=== PATIENT | male | born 1975 | race Caucasian/White ===

== ENCOUNTER 2024-01-03 13:41 | Inpatient (IN) | payer MEDICAID, SELFPAY ==
[2024-01-03 13:58] VITALS: BMI 22.9
[2024-01-03 14:00] VITALS: BP 133/84; PULSE 94; RESP 16; TEMP 36.9; O2SAT 94
[2024-01-03] MEDS: nicotine 21 mg Patch 1 PATCH TRANSDERMA (14:35)
[2024-01-03] MEDS: hyDROXYzine 25 mg Capsule 50 MG PO (14:35)
[2024-01-03] MEDS: ondansetron 4 MG Tablet PO (14:35)
[2024-01-03] MEDS: cetylpyridinium Lozenge 1 EACH MUCOUS MEM (14:35)
[2024-01-03] MEDS: LORazepam 2 mg Tablet PO (17:56)
[2024-01-03] MEDS: trazodone 50 mg Tablet PO (20:36)
[2024-01-03] MEDS: OLANZapine 5 mg ODT PO (20:36)
[2024-01-03 21:18] VITALS: BP 156/80; PULSE 107; RESP 20; O2SAT 97
--- NOTE | 2024-01-03 23:13 | PC.NURSE ---
PT IN BED RESTING. CAME UP TO NURSES STATION ASSESSMENT COMPLETED. PT IS EVASIVE AND STATES HE ONLY WANTS MEDICATIONS NOT ANSWER 20 QUESTIONS. DENIES PAIN. DENIES SI/HI AND AVH AT THIS TIME. WILL NOT RATE ANXIETY OR DEPRESSION, ONLY STATES HE HAS ANXIETY. PT WAS GIVEN TRAZODONE 50 MG ORDERED FOR INSOMNIA AND ZYDIS 5 MG FOR INCREASED ANXIETY. REPORTS HE WILL NOT TAKE VISTARIL. ALL QUESTIONS ANSWERED AND SUPPORT VOICED.
[2024-01-04 06:00] VITALS: BP 98/63; PULSE 80; RESP 16; O2SAT 91
--- NOTE | 2024-01-04 06:45 | PC.NURSE ---
PT RECEIVED PRN MEDICATIONS THIS SHIFT. PT WAS GIVEN TRAZODONE FOR INSOMNIA AND ZYDIS FOR INCREASED AGITATION. PT HAS SLEPT APPROXIMATELY 9-10 HOURS THIS SHIFT AND HAS NO OTHER COMPLAINTS OF ANXIETY. MEDICATIONS DEEMED EFFECTIVE AT THIS TIME. PT CONTINUES TO REST WITH EYES CLOSED WITH NO DISTRESS NOTED.
[2024-01-04] MEDS: multivitamin therapeutic Tablet 1 TAB PO (08:57)
[2024-01-04] MEDS: thiamine 100 mg Tablet PO (08:57)
[2024-01-04] MEDS: folic acid 1 mg Tablet PO (08:57)
--- NOTE | 2024-01-04 11:42 | W.PM.NPUH&PS ---
Providers/Chief Complaint Admitting Physician: Chris Garzon MD Chief Complaint: ETOH HPI NPU History of Present Illness Christiano Garzon is a 48 year old male who presented to [facility] emergency department with reports of being on a 4-day binge of approximately 7 pints after 2 years of sobriety. He endorsed depression and suicidal ideation at that facility. An affidavit was signed and he was transferred to [facility] and admitted to the neuropsychiatric unit for definitive treatment of those issues. Review of the outpatient records identify that he had appropriate labs and is BAL was 247.95 and presumptive positive for benzodiazepines but was likely iatrogenic through administration in the emergency department. He did during that assessment at [facility] endorse a plan to jump off a bridge and reporting that he just feels like he does not want to wake up. He presents reporting past psychiatric care but was not specific. He endorsed having a history of alcohol use and methamphetamine use. He reported no identifiable family history for mental health or addiction. He reported that he does smoke and vape and drink alcohol but denies current other drug use but agrees that there has been a past history. We discussed restarting his medications. Discussing the risks, benefits and alternatives and he understood and agreed to consider restarting them as is documented in this note. Additionally given his current withdrawal status we discussed initiating a CIWA protocol to objectively treat his alcohol withdrawal. He was otherwise a limited historian endorsing feeling horrible and trying to rest to get through these symptoms. We discussed him working with the social work team in an attempt to identify a trajectory for aftercare with our recommendation for sober living treatment at discharge. Meds NPU Home Medications Medication Instructions Recorded Confirmed Last Taken Type bupropion HCl 150 mg 24 hr tablet, 150 mg PO DAILY 01/03/24 01/03/24 Unknown History extended release (Wellbutrin XL) clonidine HCl 0.1 mg tablet 0.1 mg PO BID PRN Anxiety 01/03/24 01/03/24 Unknown History topiramate 50 mg tablet (Topamax) 50 mg PO DAILY 01/03/24 01/03/24 Unknown History Allergies Allergy/AdvReac Type Severity Reaction Status Date / Time milk Allergy ADR-Nausea Verified 01/03/24 17:57 Mental Status Exam MSE Comments: This is a well-nourished well-developed white male in hospital scrubs with limited grooming and contact. No abnormal movements except for psychomotor retardation. Somewhat cooperative with exam in mild to moderate distress. Speech was limited and decreased rate and volume. Mood described as depressed crappy, affect congruent and subdued. Thought process was more organized. Thought content: Patient reported suicidal but denied homicidal ideation, there were no delusions reported or noted, he denied any auditory or visual hallucinations. Attention and concentration appear limited and memory appeared unreliable but none were formally tested. He was alert and oriented x 3. Insight and judgment were limited impulse control poor. Vitals/I&O/Wt Last Vital Signs Temp 98.4 F 01/03/24 14:00 Pulse 80 01/04/24 06:00 Resp 16 01/04/24 06:00 BP 98/63 01/04/24 06:00 Pulse Ox 91 01/04/24 06:00 O2 Del Method Room Air 01/04/24 06:00 Weight last 48 hrs Weight 81.193 kg A&P Assessment and plan (1) Alcohol use disorder, severe, dependence: (2) Alcohol withdrawal: (3) Suicidal ideation: (4) Depression: Plan This is a 48-year-old white male who has a history of mental health issues, substance abuse both past and current, with current alcohol withdrawal, anxiety, and suicidal ideation. He has a history of self-harm and presents reporting an openness to treatment. 1. Continue current medication. Consider changes as indicated. 2. Continue every 15 minute checks for safety. 3. Encourage individual, group and milieu therapy. 4. Encourage sober living treatment after discharge at the highest level of care to which he is willing to commit. 5. Initiate CIWA protocol. Involuntary Hold Information 96 Hour Hold: 96 Hour Involuntary Admission: No Attestations NPU Medical Necessity Statement*: Inpatient hospitalization is medically necessary and the clinically appropriate intervention at this time. We will monitor/initiate medications and make changes as indicated. Patient will be in the hospital for over 2 midnights. Likely length of stay 4 to 6 days. Coding Level of Care Code Acute Code for [facility] Fwd Diagnoses Alcohol use disorder, severe, dependence F10.20 Alcohol withdrawal F10.939 Suicidal ideation R45.851 Depression F32.A
[2024-01-04] MEDS: cetylpyridinium Lozenge 1 EACH MUCOUS MEM (12:24)
[2024-01-04] MEDS: LORazepam 2 mg Tablet PO (13:51)
[2024-01-04 14:00] VITALS: BP 126/89; PULSE 98; RESP 17; TEMP 36.4; O2SAT 96
--- NOTE | 2024-01-04 15:01 | PC.OT ---
OT evaluation attempted with pt declining to be seen; will attempt at later time.
[2024-01-04 20:43] VITALS: BP 118/76; PULSE 80; RESP 18; TEMP 36.7; O2SAT 97
[2024-01-04] MEDS: OLANZapine 5 mg ODT PO (20:52)
[2024-01-04] MEDS: trazodone 50 mg Tablet PO (20:52)
--- NOTE | 2024-01-05 05:00 | PC.NURSE ---
PT RECEIVED PRN MEDICATIONS THIS SHIFT FOR SLEEP AND INCREASED ANXIETY. PT WAS GIVEN TRAZODONE 50 MG AND ZYDIS 5 MG EARLIER IN THE SHIFT. MEDICATIONS DEEMED EFFECTIVE. PT HAS HAD NO OTHER COMPLAINTS OF ANXIETY AND HAS SLEPT APPROXIMATELY 8-9 HOURS THIS SHIFT. SUPPORT VOICED.
[2024-01-05 06:00] VITALS: BP 101/62; PULSE 69; RESP 16; O2SAT 96
[2024-01-05] MEDS: folic acid 1 mg Tablet PO (07:40)
[2024-01-05] MEDS: multivitamin therapeutic Tablet 1 TAB PO (07:40)
[2024-01-05] MEDS: LORazepam 2 mg Tablet PO (07:40)
[2024-01-05] MEDS: docusate sodium 100 mg Capsule PO (07:40)
[2024-01-05] MEDS: thiamine 100 mg Tablet PO (07:41)
[2024-01-05 14:00] VITALS: BP 118/74; PULSE 89; RESP 17; TEMP 36.7; O2SAT 96
[2024-01-05] MEDS: acetaminophen 325 mg Tablet 650 MG PO (14:11)
[2024-01-05] MEDS: ondansetron 4 MG Tablet PO (14:12)
[2024-01-05] MEDS: nicotine 21 mg Patch 1 PATCH TRANSDERMA (17:24)
[2024-01-05] MEDS: buPROPion SR (12 HR) 150 mg Tablet PO (17:42)
[2024-01-05 17:44] VITALS: BP 115/83
[2024-01-05] MEDS: cloNIDine 0.1 mg Tablet 0.100000000000000006 MG PO (17:44)
--- NOTE | 2024-01-05 17:51 | W.PM.NPUPNS ---
Subjective NPU Subjective: Patient presented today reporting that he was doing okay. He continued to report needing a mood stabilizer, and anxiety medication, and increasing other medications. We did agree to increase his Wellbutrin XL after discussion of the risks, benefits and alternatives he understood and agreed to proceed as is documented in this note. We discussed the importance of taking things a day at a time and being focused on his withdrawal and sobriety as well. He denied any side effects of the medications. Mental Status Exam MSE Comments: This is a well-nourished well-developed white male in hospital scrubs with limited grooming and contact. No abnormal movements except for psychomotor retardation. Somewhat cooperative with exam in mild to moderate distress. Speech was limited and decreased rate and volume. Mood described as still depressed, affect congruent and subdued. Thought process was more organized. Thought content: Patient reported suicidal but denied homicidal ideation, there were no delusions reported or noted, he denied any auditory or visual hallucinations. Attention and concentration appear limited and memory appeared unreliable but none were formally tested. He was alert and oriented x 3. Insight and judgment were limited impulse control poor. Vitals/I&O/Wt Last Vital Signs Temp 98.0 F 01/05/24 14:00 Pulse 89 01/05/24 14:00 Resp 17 01/05/24 14:00 BP 115/83 01/05/24 17:44 Pulse Ox 96 01/05/24 14:00 O2 Del Method Room Air 01/05/24 06:00 A&P Assessment and plan (1) Alcohol use disorder, severe, dependence: (2) Alcohol withdrawal: (3) Suicidal ideation: (4) Depression: Plan This is a 48-year-old white male who has a history of mental health issues, substance abuse both past and current, with current alcohol withdrawal, anxiety, and suicidal ideation. He has a history of self-harm and presents reporting an openness to treatment. 1. Continue current medication. Increase Wellbutrin XL to 300 mg p.o. daily. 2. Continue every 15 minute checks for safety. 3. Encourage individual, group and milieu therapy. 4. Encourage sober living treatment after discharge at the highest level of care to which he is willing to commit. 5. Initiate [facility] protocol. Involuntary Hold Information 96 Hour Hold: 96 Hour Involuntary Admission: No Attestations NPU Medical Necessity Statement*: Inpatient hospitalization is medically necessary and the clinically appropriate intervention at this time. We will monitor/initiate medications and make changes as indicated. Likely length of stay 4 to 6 days. Coding Level of Care Code Acute Code for [facility] Fwd Diagnoses Alcohol use disorder, severe, dependence F10.20 Alcohol withdrawal F10.939 Suicidal ideation R45.851 Depression F32.A
[2024-01-05] MEDS: ibuprofen 600 mg Tablet PO (20:09)
[2024-01-05] MEDS: cetylpyridinium Lozenge 1 EACH MUCOUS MEM (20:10)
[2024-01-05] MEDS: OLANZapine 5 mg ODT PO (20:11)
[2024-01-05 20:12] VITALS: BP 148/96; PULSE 98; RESP 16; TEMP 36.7; O2SAT 98
--- NOTE | 2024-01-05 22:17 | PC.NURSE ---
PT UP MORE AND CONVERSING WITH [facility]. PT DENIES SI/HI AND AVH AT THIS TIME. REPORTS BACK PAIN, IBUPROFEN WAS GIVEN. RATES ANXIETY 2/10 AND DEPRESSION /. PT WAS GIVEN ZYDIS 5 MG REQUESTED FOR INCREASED ANXIETY. PT STATES HE DOES NOT DO GOOD WITH PEOPLE AND HAS BEEN MORE DEPRESSED LATELY AND WOULD LIKE TO GET HIS MEDICATIONS STRAIGHTEND OUT. ALL QUESTIONS ANSWERED AND SUPPORT VOICED.
[2024-01-06 06:00] VITALS: BP 106/66; PULSE 76; RESP 16; O2SAT 98
--- NOTE | 2024-01-06 06:17 | PC.NURSE ---
PT RECEIVED ZYDIS 5 MG EARLIER IN THE SHIFT FOR REPORTED INCREASED ANXIETY. MEDICATION DEEMED EFFECTIVE PT HAD NO OTHER COMPLAINTS OF ANXIETY THROUGHOUT THE SHIFT. PT SLEPT APPROXIMATELY 9-10 HOURS THIS SHIFT.
[2024-01-06] MEDS: cetylpyridinium Lozenge 1 EACH MUCOUS MEM ×3 (06:50→20:04)
[2024-01-06] MEDS: thiamine 100 mg Tablet PO (08:50)
[2024-01-06] MEDS: buPROPion XL (24 HR) 300 mg Tablet PO (08:50)
[2024-01-06] MEDS: topiramate 25 mg Tablet 50 MG PO (08:51)
[2024-01-06] MEDS: folic acid 1 mg Tablet PO (08:51)
[2024-01-06] MEDS: multivitamin therapeutic Tablet 1 TAB PO (08:51)
--- NOTE | 2024-01-06 11:12 | W.PM.NPUPNS ---
Subjective NPU Subjective: Patient presented today reporting that he is starting to feel better. He continues to endorse having anxiety and feeling like the clonidine never has worked. We discussed the risks, benefits and alternatives of starting propranolol 20 mg p.o. twice daily and he understood and agreed to proceed as is documented in this note. He continues to hope to have discharge sooner rather than later wants to make sure that he has his medications and a acceptable place. Mental Status Exam MSE Comments: This is a well-nourished well-developed white male in hospital scrubs with limited grooming and contact. No abnormal movements except for psychomotor retardation. Somewhat cooperative with exam in mild to moderate distress. Speech was limited and decreased rate and volume. Mood described as still depressed, affect congruent and subdued. Thought process was more organized. Thought content: Patient reported suicidal but denied homicidal ideation, there were no delusions reported or noted, he denied any auditory or visual hallucinations. Attention and concentration appear limited and memory appeared unreliable but none were formally tested. He was alert and oriented x 3. Insight and judgment were limited impulse control poor. Vitals/I&O/Wt Last Vital Signs Temp 98.1 F 01/05/24 20:12 Pulse 76 01/06/24 06:00 Resp 16 01/06/24 06:00 BP 106/66 01/06/24 06:00 Pulse Ox 98 01/06/24 06:00 O2 Del Method Room Air 01/06/24 06:00 Weight last 48 hrs Weight 81.306 kg A&P Assessment and plan (1) Alcohol use disorder, severe, dependence: (2) Alcohol withdrawal: (3) Suicidal ideation: (4) Depression: Plan This is a 48-year-old white male who has a history of mental health issues, substance abuse both past and current, with current alcohol withdrawal, anxiety, and suicidal ideation. He has a history of self-harm and presents reporting an openness to treatment. 1. Continue current medication. Increase Wellbutrin XL to 300 mg p.o. daily. DC clonidine. Start Propanolol 20 mg po bid. 2. Continue every 15 minute checks for safety. 3. Encourage individual, group and milieu therapy. 4. Encourage sober living treatment after discharge at the highest level of care to which he is willing to commit. 5. Initiate CIWA protocol. Involuntary Hold Information 96 Hour Hold: 96 Hour Involuntary Admission: No Attestations NPU Medical Necessity Statement*: Inpatient hospitalization is medically necessary and the clinically appropriate intervention at this time. We will monitor/initiate medications and make changes as indicated. Likely length of stay 2-4 days. Coding Level of Care Code Acute Code for [facility] Fwd Diagnoses Alcohol use disorder, severe, dependence F10.20 Alcohol withdrawal F10.939 Suicidal ideation R45.851 Depression F32.A
[2024-01-06] MEDS: acetaminophen 325 mg Tablet 650 MG PO (11:29)
[2024-01-06] MEDS: hyDROXYzine 25 mg Capsule 50 MG PO (11:31)
[2024-01-06 14:00] VITALS: BP 128/82; PULSE 87; RESP 14; TEMP 36.6; O2SAT 99
[2024-01-06] MEDS: ondansetron 4 MG Tablet PO (14:09)
[2024-01-06] MEDS: propranolol 20 mg Tablet PO ×2 (14:21→17:55)
[2024-01-06 14:22] VITALS: BP 128/82
[2024-01-06] MEDS: nicotine 4 mg lozenge MUCOUS MEM ×2 (15:03→20:04)
[2024-01-06] MEDS: trazodone 50 mg Tablet PO (20:04)
[2024-01-06 20:26] VITALS: BP 123/80; PULSE 89; RESP 18; TEMP 36.8; O2SAT 96
[2024-01-07] MEDS: trazodone 50 mg Tablet PO ×2 (01:27→19:48)
[2024-01-07 06:00] VITALS: BP 102/67; PULSE 77; RESP 18; O2SAT 94
--- NOTE | 2024-01-07 07:58 | PC.NURSE ---
During assessment, patient denied SI, HI, depression, anxiety, and AVH. Patient appears rested and calm. Denied any needs at this time.
[2024-01-07] MEDS: buPROPion XL (24 HR) 300 mg Tablet PO (09:06)
[2024-01-07] MEDS: multivitamin therapeutic Tablet 1 TAB PO (09:07)
[2024-01-07] MEDS: folic acid 1 mg Tablet PO (09:07)
[2024-01-07] MEDS: topiramate 25 mg Tablet 50 MG PO (09:07)
[2024-01-07] MEDS: thiamine 100 mg Tablet PO (09:07)
[2024-01-07] MEDS: propranolol 20 mg Tablet PO ×2 (09:07→19:49)
[2024-01-07 13:45] VITALS: BP 151/102; PULSE 90; RESP 16; TEMP 36.8; O2SAT 98
[2024-01-07] MEDS: nicotine 4 mg lozenge MUCOUS MEM ×3 (16:04→21:04)
[2024-01-07] MEDS: acetaminophen 325 mg Tablet 650 MG PO ×2 (16:04→19:52)
[2024-01-07] MEDS: cetylpyridinium Lozenge 1 EACH MUCOUS MEM (17:52)
--- NOTE | 2024-01-07 17:53 | PC.NURSE ---
PRN CEPACOL LOZENGE, 1 GIVEN PO PER PT C/O SORE THROAT/COUGH
--- NOTE | 2024-01-07 18:35 | W.PM.NPUPNS ---
Subjective NPU Subjective: Patient presented today reporting that he is continuing to feel better with the medication changes. He reports that he was able to talk to the social work team and that they did find him an opportunity at [facility]. The plan is for him to be there by noon tomorrow. He reports that he feels this will give him an opportunity for definite improvement and he is thankful for the treatment that he has gotten here. Otherwise he endorsed that there were no side effects to medication and he is looking forward to discharge tomorrow. Mental Status Exam MSE Comments: This is a well-nourished well-developed white male in hospital scrubs with limited grooming and contact. No abnormal movements except for psychomotor retardation. Somewhat cooperative with exam in mild to moderate distress. Speech was increased spontaneity and more normal rate and volume. Mood described as feeling better affect congruent and less subdued. Thought process was more organized. Thought content: Patient denied suicidal or homicidal ideation, there were no delusions reported or noted, he denied any auditory or visual hallucinations. Attention and concentration appear limited and memory appeared unreliable but none were formally tested. He was alert and oriented x 3. Insight and judgment were limited, but improving impulse control poor. Vitals/I&O/Wt Last Vital Signs Temp 98.3 F 01/07/24 13:45 Pulse 90 01/07/24 13:45 Resp 16 01/07/24 13:45 BP 151/102 01/07/24 13:45 Pulse Ox 98 01/07/24 13:45 O2 Del Method Room Air 01/07/24 13:45 Weight last 48 hrs Weight 81.306 kg A&P Assessment and plan (1) Alcohol use disorder, severe, dependence: (2) Alcohol withdrawal: (3) Suicidal ideation: (4) Depression: Plan This is a 48-year-old white male who has a history of mental health issues, substance abuse both past and current, with current alcohol withdrawal, anxiety, and suicidal ideation. He has a history of self-harm and presents reporting an openness to treatment. 1. Continue current medication. Increased Wellbutrin XL to 300 mg p.o. daily. DC clonidine. Started Propanolol 20 mg po bid. 2. Continue every 15 minute checks for safety. 3. Encourage individual, group and milieu therapy. 4. Encourage sober living treatment after discharge at the highest level of care to which he is willing to commit. 5. Tentative plan for discharge tomorrow. Involuntary Hold Information 96 Hour Hold: 96 Hour Involuntary Admission: No Attestations NPU Medical Necessity Statement*: Inpatient hospitalization is medically necessary and the clinically appropriate intervention at this time. We will monitor/initiate medications and make changes as indicated. Likely length of stay 1-3 days. Coding Level of Care Code Acute Code for g Fwd Diagnoses Alcohol use disorder, severe, dependence F10.20 Alcohol withdrawal F10.939 Suicidal ideation R45.851 Depression F32.A
[2024-01-07 20:01] VITALS: BP 121/75; PULSE 85; RESP 16; TEMP 36.9; O2SAT 96
[2024-01-08] MEDS: hyDROXYzine 25 mg Capsule 50 MG PO (01:02)
[2024-01-08] MEDS: trazodone 50 mg Tablet PO (01:02)
[2024-01-08] MEDS: cetylpyridinium Lozenge 1 EACH MUCOUS MEM (01:05)
[2024-01-08 06:00] VITALS: BP 100/67; PULSE 78; RESP 18; O2SAT 96
[2024-01-08] MEDS: topiramate 25 mg Tablet 50 MG PO (07:50)
[2024-01-08] MEDS: thiamine 100 mg Tablet PO (07:50)
[2024-01-08] MEDS: multivitamin therapeutic Tablet 1 TAB PO (07:50)
[2024-01-08] MEDS: folic acid 1 mg Tablet PO (07:50)
[2024-01-08] MEDS: buPROPion XL (24 HR) 300 mg Tablet PO (07:50)
[2024-01-08] MEDS: propranolol 20 mg Tablet PO (07:51)
[2024-01-08] MEDS: acetaminophen 325 mg Tablet 650 MG PO (07:51)
[2024-01-08 07:53] VITALS: BP 116/66; PULSE 86
--- NOTE | 2024-01-08 09:59 | W.PM.NPUDCS ---
Diagnoses at Discharge Discharge Diagnosis (1) Alcohol use disorder, severe, dependence: Status: Acute (2) Alcohol withdrawal: Status: Resolved (3) Suicidal ideation: Status: Resolved (4) Depression: Status: Acute Reason for Visit Reason for Visit: ETOH Brief History: History of Present Illness Christiano Garzon is a 48 year old male who presented to [facility] emergency department with reports of being on a 4-day binge of approximately 7 pints after 2 years of sobriety. He endorsed depression and suicidal ideation at that facility. An affidavit was signed and he was transferred to [facility] and admitted to the neuropsychiatric unit for definitive treatment of those issues. Review of the outpatient records identify that he had appropriate labs and is BAL was 247.95 and presumptive positive for benzodiazepines but was likely iatrogenic through administration in the emergency department. He did during that assessment at [facility] endorse a plan to jump off a bridge and reporting that he just feels like he does not want to wake up. He presents reporting past psychiatric care but was not specific. He endorsed having a history of alcohol use and methamphetamine use. He reported no identifiable family history for mental health or addiction. He reported that he does smoke and vape and drink alcohol but denies current other drug use but agrees that there has been a past history. We discussed restarting his medications. Discussing the risks, benefits and alternatives and he understood and agreed to consider restarting them as is documented in this note. Additionally given his current withdrawal status we discussed initiating a CIWA protocol to objectively treat his alcohol withdrawal. He was otherwise a limited historian endorsing feeling horrible and trying to rest to get through these symptoms. We discussed him working with the social work team in an attempt to identify a trajectory for aftercare with our recommendation for sober living treatment at discharge. Hospital Course Hospital Course Patient slowly acclimated to the individual, group and milieu therapies provided. He presented with significant depression and anxiety. He also had active addiction including alcohol. During the stay we increased his Wellbutrin XL to 300 mg p.o. daily, we added propranolol 20 mg p.o. twice daily and he was started on thiamine for appropriate treatment of his alcohol. He was on the CIWA protocol initially and got through his withdrawal. He worked with the social work team for appropriate follow-up and aftercare. Additionally he was able to work with them to get him inpatient rehab bed which was a significant goal of his that they helped him achieve. During hospitalization he had significant improvement and was able to contract for safety outside of the hospital prior to discharge. At the outside hospital, he had routine laboratory studies which were within normal limits except for a few outliers. Additionally he had general medical evaluation which was also within normal limits and revealed no new acute processes. Discharge Summary At the time of discharge, he denied any lethality and was absent psychosis. Mood and anxiety were well managed and he endorsed a plan to avoid all drugs of abuse, and follow-up with the recommended post hospital services. He was evaluated and deemed to be absent credible lethality and had received the maximum benefit from an inpatient hospitalization, so was discharged. Involuntary Hold Information 96 Hour Hold: 96 Hour Involuntary Admission: No Mental Status Exam MSE Comments: This is a well-nourished well-developed white male in hospital scrubs with limited grooming and contact. No abnormal movements except for psychomotor retardation. Somewhat cooperative with exam in mild to moderate distress. Speech was increased spontaneity and more normal rate and volume. Mood described as feeling better affect congruent and less subdued. Thought process was more organized. Thought content: Patient denied suicidal or homicidal ideation, there were no delusions reported or noted, he denied any auditory or visual hallucinations. Attention and concentration appear limited and memory appeared unreliable but none were formally tested. He was alert and oriented x 3. Insight and judgment were limited, but improving impulse control poor. Discharge Data Vitals: Last Vital Signs Temp 98.5 F 01/07/24 20:01 Pulse 86 01/08/24 07:53 Resp 18 01/08/24 06:00 BP 116/66 01/08/24 07:53 Pulse Ox 96 01/08/24 06:00 O2 Del Method Room Air 01/07/24 13:45 Discharge Plan Discharge Patient Disposition: Xfer Inpatient Rehab Fac Condition: Stable Prescriptions: New trazodone 50 mg Tablet 50 mg PO BEDTIME PRN (Reason: Sleep) 30 Days Qty: 30 1RF propranolol 20 mg Tablet 20 mg PO 0900,2100 30 Days Qty: 60 1RF hydroxyzine pamoate 25 mg Capsule 50 mg PO Q6H PRN (Reason: Anxiety) 30 Days Qty: 120 1RF bupropion HCl 300 mg Tablet Extended Release 24 Hr 300 mg PO DAILY 30 Days Qty: 30 1RF Vitamin B-1 (mononitrate) 100 mg Tablet 100 mg PO DAILY 30 Days Qty: 30 1RF Continued Topamax 50 mg tablet 50 mg PO DAILY 30 Days Qty: 30 1RF Discontinued clonidine HCl 0.1 mg tablet 0.1 mg PO BID PRN (Reason: Anxiety) bupropion HCl [Wellbutrin XL] 150 mg tablet extended release 24 hr 150 mg PO DAILY Discharge Orders: Discharge Order (Routine); Ordered 01/08/24 Ordered By: Chris Garzon Referrals: [facility] [Other] - 01/08/24 5:00 pm (Scheduled with Kimberly Butlre ) [facility] - 01/08/24 12:00 pm [facility] [Other] - 03/04/25 11:20 am ([facility]) Discharge Diet: Regular Discharge Activity: Resume usual activity Patient Instructions: Alcoholism, Alcohol Withdrawal, Propranolol (By mouth), Bupropion (By mouth) (Zyban, Wellbutrin XL, Wellbutrin SR, Wellbutrin), Trazodone (By mouth), Hydroxyzine (By mouth) (Vistaril), Depression (DC), Help Prevent Suicide (DC), Suicide Prevention (DC), Opioid Safety Discharge Attestations NPU Time Spent in Discharge Care*: less than 30 min Coding Level of Care Code Acute Code for g Fwd Diagnoses Alcohol use disorder, severe, dependence F10.20 Alcohol withdrawal F10.939 Suicidal ideation R45.851 Depression F32.A
[2024-01-08 10:02] VITALS: BP 116/66; PULSE 86
== END 2024-01-08 10:23 | DRG 897 ==
PROVIDERS: Admitting Provider Psychiatry & Neurology Psychiatry; Visit Provider Psychiatry & Neurology Psychiatry
DX: F10.239 Alcohol dependence with withdrawal, unspecified (principal); R45.851 Suicidal ideations; Y90.8 Blood alcohol level of 240 mg/100 ml or more; F41.9 Anxiety disorder, unspecified; Z72.0 Tobacco use; Z91.52 Personal history of nonsuicidal self-harm; F32.A Depression, unspecified
CPT/HCPCS: 97165; Q0162